=== PATIENT | female | born 1975 | race Two or more races ===

== ENCOUNTER 2017-01-01 06:51 | Emergency (ER) | payer SELFPAY ==
[2017-01-01 06:58] VITALS: BP 126/85
[2017-01-01] MEDS ORDERED: FAMOTIDINE 20 MG TABLET PO ONE (07:34)
[2017-01-01] MEDS ORDERED: DIPHENHYDRAMINE HCL 50 MG CAPSULE PO ONE (07:34)
[2017-01-01] MEDS ORDERED: PREDNISONE 20 MG TABLET PO ONE (07:34)
[2017-01-01] MEDS ORDERED: IBUPROFEN 600 MG TABLET PO ONE (07:37)
--- NOTE | 2017-01-01 07:40 | ER Document Report ---
HPI - HPI Patient complains to provider of: left hand swelling from insect bite Onset: Yesterday Onset/Duration: Gradual Quality of pain: Other - tight Pain Level: 5 Associated Symptoms: None Exacerbated by: Denies Relieved by: Denies Similar symptoms previously: No Recently seen / treated by doctor: No - ROS ROS below otherwise negative: Yes - CONSTITUTIONAL Constitutional: DENIES: Fever, Chills - EENT EENT: DENIES: Sore Throat, Ear Pain, Nasal Drainage-Clear, Nasal Drainage- Purulent, Congestion, Eye problems - NEURO Neurology: DENIES: Headache, Weakness, Vision blurred, Dizzinesss / Vertigo - CARDIOVASCULAR Cardiovascular: DENIES: Chest pain - RESPIRATORY Respiratory: DENIES: Trouble Breathing, Coughing - GASTROINTESTINAL Gastrointestinal: DENIES: Abdominal Pain, Nausea, Patient vomiting, Diarrhea, Constipation, Black / Bloody Stools - URINARY Urinary: DENIES: Dysuria, Urgency, Frequency - REPRODUCTIVE LMP: na Reproductive: DENIES: :, Postmenopausal, Abnormal bleeding / discharge - DERM Skin Color: Other - red swelling to left hand and fingers developed overnight Skin Problems: None Past Medical History - General Information source: Patient Last Menstrual Period: hyst - Social History Smoking Status: Former Smoker Cigarette use (# per day): No Chew tobacco use (# tins/day): No Smoking Education Provided: No Frequency of alcohol use: None Drug Abuse: None Lives with: Family Family History: Reviewed & Not Pertinent Patient has suicidal ideation: No Patient has homicidal ideation: No - Past Medical History Cardiac Medical History: Reports: None Pulmonary Medical History: Reports: None EENT Medical History: Reports: None Neurological Medical History: Reports: Hx Migraine Endocrine Medical History: Reports: None Renal/ Medical History: Reports: None Malignancy Medical History: Reports: None GI Medical History: Reports: Hx Gastritis Musculoskeltal Medical History: Reports None Skin Medical History: Reports None Psychiatric Medical History: Reports: Hx Bipolar Disorder Traumatic Medical History: Reports: Hx Fractures - hand and ankle Infectious Medical History: Reports: None Past Surgical History: Reports: Hx Hysterectomy, Hx Orthopedic Surgery - ORIF ankle, Hx Tonsillectomy, Hx Tubal Ligation - Immunizations Hx Diphtheria, Pertussis, Tetanus Vaccination: Yes Vertical Provider Document - CONSTITUTIONAL Agree With Documented VS: Yes Exam Limitations: No Limitations General Appearance: WD/WN, No Apparent Distress - INFECTION CONTROL TRAVEL OUTSIDE OF THE [place] IN LAST 30 DAYS: No - NECK Neck: Normal Inspection - RESPIRATORY Respiratory: Breath Sounds Normal, No Respiratory Distress, Chest Non-Tender O2 Sat by Pulse Oximetry: 98 - CARDIOVASCULAR Cardiovascular: Regular Rate, Regular Rhythm, No Murmur - GI/ABDOMEN Gastrointestinal: Abdomen Soft, Abdomen Non-Tender, No Organomegaly, Normal Bowel Sounds - BACK Back: Normal Inspection - MUSCULOSKELETAL/EXTREMETIES Musculoskeletal/Extremeties: FROM, Tender, Edema - left hand swelling - NEURO Level of Consciousness: Awake, Alert, Appropriate Motor/Sensory: No Motor Deficit, No Sensory Deficit, No Pronator Drift Deep Tendon Reflexes: 2+ - DERM Integumentary: Warm, Dry, No Rash Course - Re-evaluation Re-evalutation: 01/01/17 07:41 benadryl ibuprofen prednison and pepcid given for swollen tight hand. discharged home with prescription for prednisone. - Vital Signs Vital signs: Temp Pulse Resp BP Pulse Ox 97.7 F 78 18 126/85 H 98 01/01/17 06:55 01/01/17 06:55 01/01/17 06:55 01/01/17 06:55 01/01/17 06:55 Discharge - Discharge Clinical Impression: Insect bite of left hand with local reaction Qualifiers: Encounter type: initial encounter Qualified Code(s): S60.562A - Insect bite ( nonvenomous) of left hand, initial encounter; W57.XXXA - Bitten or stung by nonvenomous insect and other nonvenomous arthropods, initial encounter Condition: Stable Disposition: HOME, SELF-CARE Instructions: Family Physicians / Practices Additional Instructions: Insect Bites You have been bitten by an insect. These bites can cause two types of swelling: an initial swelling due to insect saliva or injected poison, and a late reaction due to your body's allergic reaction. This initial local reaction may be uncomfortable but is not dangerous. Often there's an itchy "hive" at the bite location. This is treated with antihistamines, cold compresses, and resting the affected body part. The later reaction often develops about the second day. The entire area becomes very swollen, red, itchy, and tender. This is an allergic reaction. Your body is attacking the leftover insect saliva or venom. This type of allergy is unpleasant, but not dangerous. We treat this swelling with cortisone -type medicine. Sometimes we use antibiotics if we're worried about infection. Antihistamines help with the itch. If you develop a fever, chills, a red streak, or swollen glands in the area of the bite, infection may be starting. Return at once. STEROID MEDICATION: You have been given a medicine of the cortisone/steroid class. This medication is used to control inflammation or allergy. It is usually only given for a short period of time, until the acute process subsides. There are usually no side effects from short-term use of cortisone-like medications. Some persons feel an increased sense of well-being and are not sleepy at bedtime. Long-term use of cortisone medications is best avoided, unless required for a severe condition. If your condition does not remit, or relapses after the course of corticosteroid medication, you should consult your physician. ACID-SUPPRESSING MEDICATION: You have a prescription for medicine which reduces the stomach's secretion of acid. Examples include Zantac, Tagament, and Pepcid. These drugs are often used to allow healing of ulcers or esophagitis. They may be needed to prevent recurrence of ulcers in some patients, or to prevent damage from acid reflux in the esophagus. Take all medication as prescribed, even after the pain is gone. Regular antacids may be added as needed if you have symptoms while taking this medicine. These medications sometimes are prescribed for allergic reactions because they have anti-histaminic effects and relieve the rash and itching of the reaction. There are usually no side effects from this medication. But, in rare cases and particularly in the elderly, serious problems can occur. Contact your doctor if there is fever, rash, hallucinations, confusion, or unusual bruising. Contact your doctor at once if you develop lightheadedness, black or bloody stool, or bloody vomitus. ANTIHISTAMINES: An antihistamine has been given and/or prescribed to control your symptoms. Antihistamines are used for many reasons, including itching, watering eyes, runny nose, allergic swelling, hives, and insect stings. Antihistamines may cause drowsiness, especially with the first dose. Do not operate machinery or drive while under the effects of the medication. Other common side effects include dry mouth and eyes. In older persons, antihistamines can occasionally cause urinary retention, constipation, and trouble focusing the eyes. Do not combine the medication with alcohol, or with any other medication without talking to your doctor. USE OF DIPHENHYDRAMINE: The use of diphenhydramine (Benadryl) has been recommended to control allergic symptoms. The 25 mg strength is available over- the-counter, as well as the elixir. This antihistamine is used for many symptoms. It's useful for itching, watering eyes and nose, allergic swelling, hives, and insect stings. The medication can be repeated four times daily. Age Elixir (12.5 mg/tsp) 25 mg pill 2-3 yr 1/2 tsp 4-8 yr 1 tsp 9-14 yr 2 tsp one tab adult 1-2 tabs Antihistamines may cause drowsiness, especially with the first dose. Do not operate machinery or drive while under the effects of the medication. Do not combine the medication with alcohol, or with any other medication without talking to your doctor. Ice & Elevation Apply ice packs frequently against the painful area. Many different schedules are recommended, such as "20 minutes on, 20 minutes off" or "one hour ice, two hours rest." If you need to work, you may need to go longer between ice treatments. You should plan to have the area ice packed AT LEAST one- fourth of the time. The ice should be applied over the wrap, tape, or splint, or over a layer of cloth -- not directly against the skin. Some ice bags have a built-in cloth and can be put directly on the skin. Your injured part should be elevated as much as possible over the next 48 hours. Try to keep the injury above the level of the heart. Avoid use of the injured area. Elevation and rest will decrease the swelling. FOLLOW-UP CARE: If you have been referred to a physician for follow-up care, call the physician s office for an appointment as you were instructed or within the next two days. If you experience worsening or a significant change in your symptoms, notify the physician immediately or return to the Emergency Department at any time for re-evaluation. Prescriptions: Prednisone [Deltasone 20 mg Tablet] 3 tab PO DAILY 3 Days Forms: Return to Work, Elevated Blood Pressure
== END 2017-01-01 07:51 | disposition home or self-care (01) ==
LOC: ER 06:51
DX: S60.562A Insect bite (nonvenomous) of left hand, initial encounter (principal); W57.XXXA Bitten or stung by nonvenomous insect and other nonvenomous arthropods, initial encounter; Z87.891 Personal history of nicotine dependence
CPT/HCPCS: 99283; J7512

== ENCOUNTER 2017-03-20 17:19 | Emergency (ER) | payer SELFPAY ==
--- NOTE | 2017-03-20 18:42 | ER Document Report ---
HPI - HPI Patient complains to provider of: left ankle pain Pain Level: 5 Context: 42 yo female c/0 left ankle pain x 2 weeks. no recent trauma. no redness or swelling or warmth. pt has hx/o ortho surgery to that ankle with hardware. Associated Symptoms: None Exacerbated by: Walking Relieved by: Denies Similar symptoms previously: Yes Recently seen / treated by doctor: No - REPRODUCTIVE Reproductive: DENIES: : - DERM Skin Color: Normal Past Medical History - General Information source: Patient - Social History Smoking Status: Current Every Day Smoker Frequency of alcohol use: None Drug Abuse: None Lives with: Family Family History: Reviewed & Not Pertinent Patient has suicidal ideation: No Patient has homicidal ideation: No Neurological Medical History: Reports: Hx Migraine Renal/ Medical History: Denies: Hx Peritoneal Dialysis GI Medical History: Reports: Hx Gastritis Psychiatric Medical History: Reports: Hx Bipolar Disorder Traumatic Medical History: Reports: Hx Fractures - hand and ankle Past Surgical History: Reports: Hx Hysterectomy, Hx Orthopedic Surgery - ORIF ankle, Hx Tonsillectomy, Hx Tubal Ligation - Immunizations Hx Diphtheria, Pertussis, Tetanus Vaccination: Yes Vertical Provider Document - CONSTITUTIONAL Agree With Documented VS: Yes Exam Limitations: No Limitations General Appearance: WD/WN, No Apparent Distress - INFECTION CONTROL TRAVEL OUTSIDE OF THE [place] IN LAST 30 DAYS: No - HEENT HEENT: Atraumatic - NECK Neck: Normal Inspection, Supple - RESPIRATORY Respiratory: Breath Sounds Normal O2 Sat by Pulse Oximetry: 100 - CARDIOVASCULAR Cardiovascular: Regular Rate, Regular Rhythm - MUSCULOSKELETAL/EXTREMETIES Musculoskeletal/Extremeties: FROM - distal SMC intact, Tender - left lateral malleous.. negative: No Edema, Eccymosis - DERM Integumentary: Warm, Dry Course - Re-evaluation Re-evalutation: 03/20/17 18:38 no recent trauma. no indication for imaging. no suspicion circulatory or infectious origin. suspect traumatic arthritis. 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
[2017-03-20 19:22] VITALS: BP 117/72
== END 2017-03-20 19:01 | disposition home or self-care (01) ==
LOC: ER 17:19
DX: M25.572 Pain in left ankle and joints of left foot (principal); M12.572 Traumatic arthropathy, left ankle and foot; F17.200 Nicotine dependence, unspecified, uncomplicated; Z90.710 Acquired absence of both cervix and uterus
CPT/HCPCS: 99283

== ENCOUNTER 2017-05-10 11:40 | Emergency (ER) | payer SELFPAY ==
--- NOTE | 2017-05-10 12:15 | ER Document Report ---
ED Medical Screen (RME) - General Mode of Arrival: Ambulatory Information source: Patient TRAVEL OUTSIDE OF THE [place] IN LAST 30 DAYS: No <PHYLLIS NIETO - Last Filed: 05/10/17 12:43> <TE REBOLLEDO - Last Filed: 05/10/17 12:44> - General Chief Complaint: Abdominal Pain Stated Complaint: ABDOMINAL PAIN Time Seen by Provider: 05/10/17 12:01 Notes: Patient is a 42 year old female presenting to the emergency department for sharp abdominal pain that was onset around 9:30 this morning. Patient describes the pain as sharp and stabbing. Patient also experienced some bleeding when she went to the bathroom x2. Patient noticed the blood on the paper and not in the toilet or on her undergarments. Patient is unsure if the blood is vaginal or urinary. Patient states the first time the blood was bright red and then it was ground worker the second time. Patient denies any burning with urination. Patient denies being due to a hysterectomy. Patient denies any history of kidney stones. (PHYLLIS NIETO) - Related Data Allergies/Adverse Reactions: aspirin [Aspirin] Allergy (Verified 05/10/17 11:57) Home Medications: Current Home Medications No Home Medications 05/10/17 [History] Past Medical History - Social History Cigarette use (# per day): No Chew tobacco use (# tins/day): No Frequency of alcohol use: Occasional Drug Abuse: None Neurological Medical History: Reports: Hx Migraine Renal/ Medical History: Denies: Hx Peritoneal Dialysis GI Medical History: Reports: Hx Gastritis Psychiatric Medical History: Reports: Hx Bipolar Disorder Traumatic Medical History: Reports: Hx Fractures - hand and ankle Past Surgical History: Reports: Hx Hysterectomy, Hx Orthopedic Surgery - ORIF ankle, Hx Tonsillectomy, Hx Tubal Ligation - Immunizations Hx Diphtheria, Pertussis, Tetanus Vaccination: Yes <PHYLLIS NIETO - Last Filed: 05/10/17 12:43> Physical Exam - Vital signs Interpretation: Normal <PHYLLIS NIETO - Last Filed: 05/10/17 12:43> <TE REBOLLEDO - Last Filed: 05/10/17 12:44> - Vital signs Vitals: Temp Pulse Resp BP Pulse Ox 98.0 F 64 16 135/78 H 99 05/10/17 11:57 05/10/17 11:57 05/10/17 11:57 05/10/17 11:57 05/10/17 11:57 - Notes Notes: GENERAL: Alert, interacts well. No acute distress. LUNGS: No respiratory distress. ABDOMEN: Soft, suprapubic tenderness to palpation in a seated position. Non- distended. Bowel sounds present in all 4 quadrants. NEUROLOGICAL: Alert and oriented x3. Normal speech. (PHYLLIS NIETO) Course - Laboratory Result Diagrams: 05/10/17 12:19 05/10/17 12:19 <PHYLLIS NIETO - Last Filed: 05/10/17 12:43> - Laboratory Result Diagrams: 05/10/17 12:19 05/10/17 12:19 <TE REBOLLEDO - Last Filed: 05/10/17 12:44> - Vital Signs Vital signs: Temp Pulse Resp BP Pulse Ox 98.0 F 64 16 135/78 H 99 05/10/17 11:57 05/10/17 11:57 05/10/17 11:57 05/10/17 11:57 05/10/17 11:57 Scribe Documentation - Scribe Written by Scribe:: Annamarie Hensley 05/10/17 12:16 acting as scribe for :: Radha <PHYLLIS NIETO - Last Filed: 05/10/17 12:43>
--- NOTE | 2017-05-10 12:33 | ER Document Report ---
ED GI/ - General Chief Complaint: Abdominal Pain Stated Complaint: ABDOMINAL PAIN Time Seen by Provider: 05/10/17 12:01 Mode of Arrival: Ambulatory Information source: Patient Notes: 42-year-old female complaining of finding some blood when she wiped after urinating at work at 930 this morning. She is also having suprapubic discomfort. No history kidney stones. She did not have a bowel movement at that time there is no bleeding at this time. Hysterectomy 5 years ago. No vaginal symptoms with discharge or discomfort. TRAVEL OUTSIDE OF THE [place] IN LAST 30 DAYS: No - Related Data Allergies/Adverse Reactions: aspirin [Aspirin] Allergy (Verified 05/10/17 11:57) Home Medications: Current Home Medications No Home Medications 05/10/17 [History] Past Medical History - General Information source: Patient - Social History Smoking Status: Never Smoker Cigarette use (# per day): No Chew tobacco use (# tins/day): No Frequency of alcohol use: Occasional Drug Abuse: None Family History: Reviewed & Not Pertinent Patient has suicidal ideation: No Patient has homicidal ideation: No Neurological Medical History: Reports: Hx Migraine Renal/ Medical History: Denies: Hx Peritoneal Dialysis GI Medical History: Reports: Hx Gastritis Psychiatric Medical History: Reports: Hx Bipolar Disorder Traumatic Medical History: Reports: Hx Fractures - hand and ankle Past Surgical History: Reports: Hx Hysterectomy, Hx Oral Surgery - wisdom teeth , Hx Orthopedic Surgery - ORIF ankle, Hx Tonsillectomy, Hx Tubal Ligation - Immunizations Hx Diphtheria, Pertussis, Tetanus Vaccination: Yes Review of Systems - Review of Systems Constitutional: No symptoms reported EENT: No symptoms reported Cardiovascular: No symptoms reported Respiratory: No symptoms reported Gastrointestinal: No symptoms reported Genitourinary: See HPI Female Genitourinary: No symptoms reported Musculoskeletal: No symptoms reported Skin: No symptoms reported Hematologic/Lymphatic: No symptoms reported Neurological/Psychological: No symptoms reported Physical Exam - Vital signs Vitals: Temp Pulse Resp BP Pulse Ox 98.0 F 64 16 135/78 H 99 05/10/17 11:57 05/10/17 11:57 05/10/17 11:57 05/10/17 11:57 05/10/17 11:57 Interpretation: Normal - General General appearance: Appears well, Alert - HEENT Head: Normocephalic, Atraumatic Eyes: Normal Pupils: PERRL Pharynx: Normal Neck: Supple. No: Thyromegally - Respiratory Respiratory status: No respiratory distress Chest status: Nontender Breath sounds: Normal Chest palpation: Normal - Cardiovascular Rhythm: Regular Heart sounds: Normal auscultation Murmur: No - Abdominal Inspection: Normal Distension: No distension Bowel sounds: Normal Tenderness: Nontender. No: Tender Organomegaly: No organomegaly - Rectal Tenderness: Yes - anal fissure a 12 oclock Hemorrhoids: None - Genitourinary External exam: Normal - Back Back: Normal, Nontender. No: CVA tenderness - Extremities General upper extremity: Normal inspection, Nontender, Normal color, Normal ROM , Normal temperature General lower extremity: Normal inspection, Nontender, Normal color, Normal ROM , Normal temperature, Normal weight bearing. No: Kyung's sign - Neurological Neuro grossly intact: Yes Cognition: Normal Orientation: AAOx4 Addison Coma Scale Eye Opening: Spontaneous Addison Coma Scale Verbal: Oriented Addison Coma Scale Motor: Obeys Commands Addison Coma Scale Total: 15 Speech: Normal Motor strength normal: LUE, RUE, LLE, RLE Sensory: Normal - Psychological Associated symptoms: Normal affect, Normal mood - Skin Skin Temperature: Warm Skin Moisture: Dry Skin Color: Normal Skin irregularity: negative: Rash Course - Re-evaluation Re-evalutation: 05/10/17 12:55 Patient checked her vagina with a Q-tip and there is no blood on it. Urine has no blood. Labs are normal. - Vital Signs Vital signs: Temp Pulse Resp BP Pulse Ox 98.3 F 74 16 117/75 100 05/10/17 13:57 05/10/17 13:57 05/10/17 13:57 05/10/17 13:57 05/10/17 13:57 - Laboratory Result Diagrams: 05/10/17 12:19 05/10/17 12:19 Laboratory results interpreted by me: 05/10/17 12:19 Urine Blood SMALL H Discharge - Discharge Clinical Impression: Anal fissure, Suprapubic abdominal discomfort Condition: Good Disposition: HOME, SELF-CARE Instructions: Abdominal Pain ([facility]), Anal Fissure ([facility]), Stool Softener ([facility]) Additional Instructions: do not strain, bacitracin to anal fissure if you have a bm past this skin tear it may bleed again keep stools soft for now with over the counter stool softner, plenty of water daily Please complete the patient satisfaction survey if you get one, and return it.. If you do not receive a survey, then you can go to the [facility] website, [email or web address] and place your comments about your very good care. Thank you very much. It was a pleasure being your medical provider today. Forms: Return to Work
[2017-05-10 12:41] LABS: ABSOLUTE EOSINOPHILS # (AUTO) 0.2 10^3/uL (0.0-0.6); ABSOLUTE LYMPHOCYTES (AUTO) 1.7 10^3/uL (0.5-4.7); ABSOLUTE MONOCYTES (AUTO) 0.4 10^3/uL (0.1-1.4); ABSOLUTE NEUT (AUTO) 4.6 10^3/uL (1.7-8.2); BASOPHILS % (AUTO) 0.5 % (0-2); EOSINOPHILS % (AUTO) 2.3 % (0-6); HEMATOCRIT 40.1 % (36.0-47.0); HEMOGLOBIN 13.5 g/dL (12.0-15.5); HGB HCT DIFFERENCE 0.4; LYMPHOCYTES % (AUTO) 24.3 % (13-45); MEAN CORPUSCULAR HEMOGLOBIN 29.7 pg (27.0-33.4); MEAN CORPUSCULAR HGB CONC 33.7 g/dL (32.0-36.0); MEAN CORPUSCULAR VOLUME 88 fl (80-97); MONOCYTES % (AUTO) 6.5 % (3-13); RED BLOOD COUNT 4.55 10^6/uL (3.72-5.28); RED CELL DISTRIBUTION WIDTH 12.9 % (11.5-14.0); SEGMENTED NEUTROPHILS % (AUTO) 66.4 % (42-78); WHITE BLOOD COUNT 6.9 10^3/uL (4.0-10.5)
[2017-05-10 12:45] LABS: APPEARANCE,URINE CLEAR; BILIRUBIN,URINE NEGATIVE (NEGATIVE); GLUCOSE, URINE NEGATIVE (NEGATIVE); KETONES,URINE NEGATIVE (NEGATIVE); LEUKOCYTE ESTERASE,URINE NEGATIVE (NEGATIVE); NITRITE,URINE NEGATIVE (NEGATIVE); PROTEIN,URINE NEGATIVE (NEGATIVE); URINE SPECIFIC GRAVITY 1.004; UROBILINOGEN,URINE NEGATIVE mg/dL (<2.0)
[2017-05-10 13:03] LABS: ALANINE AMINOTRANSFERASE 42 U/L (9-52); ALBUMIN 4.3 g/dL (3.5-5.0); ALKALINE PHOSPHATASE 49 U/L (38-126); ANION GAP 9 (5-19); ASPARTATE AMINO TRANSFERASE 32 U/L (14-36); BILIRUBIN,DIRECT 0.4 mg/dL (0.0-0.4); BILIRUBIN,TOTAL 0.7 mg/dL (0.2-1.3); BLOOD UREA NITROGEN 7 mg/dL (7-20); CALCIUM 10.1 mg/dL (8.4-10.2); CARBON DIOXIDE 27 mmol/L (22-30); CHLORIDE 103 mmol/L (98-107); CREATININE RESULT 0.76 mg/dL (0.52-1.25); GLUCOSE 82 mg/dL (75-110); SODIUM 138.5 mmol/L (137-145); TOTAL PROTEIN 7.1 g/dL (6.3-8.2)
[2017-05-10 13:57] VITALS: BP 117/75
== END 2017-05-10 13:58 | disposition home or self-care (01) ==
LOC: ER 11:40
DX: R10.30 Lower abdominal pain, unspecified (principal); K60.2 Anal fissure, unspecified; Z90.710 Acquired absence of both cervix and uterus; Z88.6 Allergy status to analgesic agent
CPT/HCPCS: 36415; 80053; 81001; 85025; 87086; 99284

== ENCOUNTER 2017-12-14 08:15 | Emergency (ER) | payer BC ==
[2017-12-14] MEDS ORDERED: NORMAL SALINE 1000 ML 1,000 ML IV PRN (09:04)
[2017-12-14] MEDS ORDERED: PROCHLORPERAZINE EDISYLATE INJ 10 MG/2 ML VIAL IV ONE (09:05)
[2017-12-14] MEDS ORDERED: ONDANSETRON HCL INJ/PF 4 MG/2 ML SDV IV ONE (09:05)
[2017-12-14 09:13] LABS: ABSOLUTE EOSINOPHILS # (AUTO) 0.1 10^3/uL (0.0-0.6); ABSOLUTE LYMPHOCYTES (AUTO) 0.6 10^3/uL (0.5-4.7); ABSOLUTE MONOCYTES (AUTO) 0.4 10^3/uL (0.1-1.4); ABSOLUTE NEUT (AUTO) 2.7 10^3/uL (1.7-8.2); BASOPHILS % (AUTO) 0.9 % (0-2); EOSINOPHILS % (AUTO) 2.8 % (0-6); HEMATOCRIT 40.6 % (36.0-47.0); HEMOGLOBIN 13.6 g/dL (12.0-15.5); LYMPHOCYTES % (AUTO) 15.9 % (13-45); MEAN CORPUSCULAR HEMOGLOBIN 29.5 pg (27.0-33.4); MEAN CORPUSCULAR HGB CONC 33.6 g/dL (32.0-36.0); MEAN CORPUSCULAR VOLUME 88 fl (80-97); MONOCYTES % (AUTO) 11.4 % (3-13); PLATELET COUNT 256 10^3/uL (150-450); RED BLOOD COUNT 4.62 10^6/uL (3.72-5.28); RED CELL DISTRIBUTION WIDTH 12.9 % (11.5-14.0); TOTAL CELLS COUNTED % (AUTO) 100 %; WHITE BLOOD COUNT 3.9 10^3/uL (4.0-10.5)
[2017-12-14 09:34] LABS: ALANINE AMINOTRANSFERASE 29 U/L (9-52); ALBUMIN 4.4 g/dL (3.5-5.0); ALKALINE PHOSPHATASE 36 U/L (38-126); ANION GAP 8 (5-19); ASPARTATE AMINO TRANSFERASE 20 U/L (14-36); BILIRUBIN,DIRECT 0.2 mg/dL (0.0-0.4); BILIRUBIN,TOTAL 0.5 mg/dL (0.2-1.3); BLOOD UREA NITROGEN 9 mg/dL (7-20); CALCIUM 9.5 mg/dL (8.4-10.2); CARBON DIOXIDE 25 mmol/L (22-30); CHLORIDE 104 mmol/L (98-107); CREATINE KINASE 39 U/L (30-135); GLUCOSE 101 mg/dL (75-110); SODIUM 137.3 mmol/L (137-145); TOTAL PROTEIN 7.2 g/dL (6.3-8.2)
[2017-12-14 09:38] LABS: INTERNATIONAL RATION (INR) 0.96; PROTHROMBIN TIME 13.5 SEC (11.4-15.4)
[2017-12-14 09:45] LABS: CREATINE KINASE MB < 0.22 ng/mL (<4.55); TROPONIN I < 0.012 ng/mL
[2017-12-14 09:53] LABS: APPEARANCE,URINE CLEAR; BILIRUBIN,URINE NEGATIVE (NEGATIVE); COLOR,URINE YELLOW; GLUCOSE, URINE NEGATIVE (NEGATIVE); KETONES,URINE NEGATIVE (NEGATIVE); LEUKOCYTE ESTERASE,URINE NEGATIVE (NEGATIVE); NITRITE,URINE NEGATIVE (NEGATIVE); PROTEIN,URINE NEGATIVE (NEGATIVE); URINE SPECIFIC GRAVITY 1.023; UROBILINOGEN,URINE NEGATIVE mg/dL (<2.0)
--- NOTE | 2017-12-14 09:59 | RADIOLOGY REPORT (SQ) ---
EXAM DESCRIPTION: CHEST PA/LAT COMPLETED DATE/TIME: 12/14/2017 9:41 am REASON FOR STUDY: sob/cp COMPARISON: 03/21/2016 EXAM PARAMETERS: NUMBER OF VIEWS: two views TECHNIQUE: Digital Frontal and Lateral radiographic views of the chest acquired. RADIATION DOSE: NA LIMITATIONS: none FINDINGS: LUNGS AND PLEURA: No opacities, masses or pneumothorax. No pleural effusion. MEDIASTINUM AND HILAR STRUCTURES: No masses or contour abnormalities. HEART AND VASCULAR STRUCTURES: Heart normal size. No evidence for failure. BONES: No acute findings. HARDWARE: None in the chest. OTHER: No other significant finding. IMPRESSION: NO SIGNIFICANT RADIOGRAPHIC FINDING IN THE CHEST. TECHNICAL DOCUMENTATION: JOB ID: [id number] [employer]- All Rights Reserved Reading location - IP/workstation name: [email or web address]
--- NOTE | 2017-12-14 10:23 | EKG REPORT ---
SEVERITY:- BORDERLINE ECG - SINUS RHYTHM PROBABLE LEFT ATRIAL ABNORMALITY : Confirmed by: Gomez Vera MD 14-Dec-2017 10:22:44
--- NOTE | 2017-12-14 11:33 | ER Document Report ---
ED General - General Chief Complaint: Chest Tightness Stated Complaint: HEADACHE Time Seen by Provider: 12/14/17 08:50 TRAVEL OUTSIDE OF THE [place] IN LAST 30 DAYS: No - HPI Patient complains to provider of: Chest tightness nausea headache Notes: Patient coming in for chest tightness nausea headache ongoing since day prior to arrival. Patient states she otherwise just feels generally unwell. Denies fevers chills or diarrhea. Denies any recent antibiotics or travel. Denies any other sick contacts. Patient is resting comfortably upon my evaluation denies any head trauma states chest tightness is global as well as her headache. - Related Data Allergies/Adverse Reactions: aspirin [Aspirin] Allergy (Verified 12/14/17 08:18) Past Medical History - Social History Smoking Status: Current Some Day Smoker Chew tobacco use (# tins/day): No Frequency of alcohol use: None Family History: Reviewed & Not Pertinent Patient has suicidal ideation: No Patient has homicidal ideation: No Neurological Medical History: Reports: Hx Migraine Renal/ Medical History: Denies: Hx Peritoneal Dialysis GI Medical History: Reports: Hx Gastritis Psychiatric Medical History: Reports: Hx Bipolar Disorder Traumatic Medical History: Reports: Hx Fractures - hand and ankle Past Surgical History: Reports: Hx Hysterectomy, Hx Oral Surgery - wisdom teeth , Hx Orthopedic Surgery - ORIF ankle, Hx Tonsillectomy, Hx Tubal Ligation - Immunizations Hx Diphtheria, Pertussis, Tetanus Vaccination: Yes Review of Systems - Review of Systems Constitutional: No symptoms reported EENT: No symptoms reported Cardiovascular: Chest pain Respiratory: No symptoms reported Gastrointestinal: No symptoms reported Genitourinary: No symptoms reported Female Genitourinary: No symptoms reported Musculoskeletal: No symptoms reported Skin: No symptoms reported Hematologic/Lymphatic: No symptoms reported Neurological/Psychological: Headaches -: Yes All other systems reviewed and negative Physical Exam - Vital signs Vitals: Resp Pulse Ox 17 98 12/14/17 08:45 12/14/17 08:45 Interpretation: Normal - General General appearance: Appears well, Alert - HEENT Head: Normocephalic, Atraumatic Eyes: Normal Pupils: PERRL - Respiratory Respiratory status: No respiratory distress Chest status: Nontender Breath sounds: Normal Chest palpation: Normal - Cardiovascular Rhythm: Regular Heart sounds: Normal auscultation Murmur: No - Abdominal Inspection: Normal Distension: No distension Bowel sounds: Normal Tenderness: Nontender Organomegaly: No organomegaly - Back Back: Normal, Nontender - Extremities General upper extremity: Normal inspection, Nontender, Normal color, Normal ROM , Normal temperature General lower extremity: Normal inspection, Nontender, Normal color, Normal ROM , Normal temperature, Normal weight bearing. No: Kyung's sign - Neurological Neuro grossly intact: Yes Cognition: Normal Orientation: AAOx4 Addison Coma Scale Eye Opening: Spontaneous Addison Coma Scale Verbal: Oriented [place] Coma Scale Motor: Obeys Commands Regina Coma Scale Total: 15 Speech: Normal Motor strength normal: LUE, RUE, LLE, RLE Sensory: Normal - Psychological Associated symptoms: Normal affect, Normal mood - Skin Skin Temperature: Warm Skin Moisture: Dry Skin Color: Normal Course - Re-evaluation Re-evalutation: 12/14/17 14:40 Patient resting comfortably upon my evaluation reevaluation. Patient pain is now better. More likely viral etiology for the patient's symptoms. Denies any significant pathology patient will be discharged home follow-up primary care physician. The patient presents with headache without signs of [employer] bleed, stroke, infection, or other serious etiology. The patient is neurologically intact. Given the extremely low risk of these diagnoses further testing and evaluation for these possibilities does not appear to be indicated at this time. The patient has been instructed to return if the symptoms worsen or change in any way.. The patient has atypical chest pain as the patient's chest pain is not suggestive of pulmonary embolus, cardiac ischemia, aortic dissection , or other serious etiology. Given the extremely low risk of these diagnoses further testing and evaluation for these possibilities does not appear to be indicated at this time. The patient has been instructed to return if the symptoms worsen or change in any way. - Vital Signs Vital signs: Temp Pulse Resp BP Pulse Ox 98.6 F 21 H 129/91 H 100 12/14/17 11:50 12/14/17 11:46 12/14/17 11:50 12/14/17 11:00 - Laboratory Result Diagrams: 12/14/17 09:00 12/14/17 09:00 Laboratory results interpreted by me: 12/14/17 12/14/17 09:00 09:00 WBC 3.9 L Alkaline Phosphatase 36 L Discharge - Discharge Clinical Impression: Chest tightness, Nausea Headache Qualifiers: Headache type: unspecified Headache chronicity pattern: unspecified pattern Intractability: not intractable Qualified Code(s): R51 - Headache Condition: Good Disposition: HOME, SELF-CARE Instructions: Chest Pain of Unclear Cause ([facility]), Headache ([facility]), Nausea or Vomiting, Nonspecific ([facility]), Viral Syndrome ([facility]) Additional Instructions: Your symptoms are more likely related to a underlying virus. At this time her laboratory studies do not show any significant pathology. Please take medication as prescribed also take Tylenol Motrin for pain and fevers. Return to the ER symptoms worsen. Prescriptions: Ondansetron [Zofran Odt 4 mg Tablet] 4 mg PO Q6 #30 tab.rapdis Prochlorperazine Maleate [Compazine 5 Mg Tablet] 5 mg PO Q6 #30 tablet Forms: Return to Work
[2017-12-14 11:53] VITALS: BP 129/91
== END 2017-12-14 11:53 | disposition home or self-care (01) ==
LOC: ER 08:15
DX: R07.89 Other chest pain (principal); R51 Headache; R11.0 Nausea; F17.200 Nicotine dependence, unspecified, uncomplicated
CPT/HCPCS: 93005; 99284; 96361; 96374; 96375; 36415; 82553; 82550; 85025; 85610; 81025; 80053; 81001; 84484; 71046; 93010; J0780; J2405; J7030

== ENCOUNTER 2018-02-18 12:42 | Emergency (ER) | payer BC ==
[2018-02-18 12:56] VITALS: BP 121/74
[2018-02-18] MEDS ORDERED: PREDNISONE 20 MG TABLET PO ONE (13:20)
[2018-02-18] MEDS ORDERED: IBUPROFEN 800 MG TABLET PO ONE (13:20)
--- NOTE | 2018-02-18 13:20 | ER Document Report ---
ED Neck/Back Problem - General Chief Complaint: Leg Pain Stated Complaint: RIGHT SIDE PAIN/LEG PAIN Time Seen by Provider: 02/18/18 13:19 Mode of Arrival: Ambulatory Information source: Patient Notes: 41-year-old female presented ED for complaint of back pain radiating down her right leg. She states that at times it feels like her right knee and leg are going to give out on her due to the pain. She states she has had a history of low back pain with sciatica to the left leg but never to the right ear patient is able to ambulate with a steady gait when asked to ambulate she was also able to walk to radiology TRAVEL OUTSIDE OF THE [place] IN LAST 30 DAYS: No - HPI Patient complains to provider of: Lower back - With sciatica to the right leg Onset: Other - Since Saturday Onset: Gradual Timing: Waxing and waning, Still present Quality of pain: Burning, Sharp Severity: Moderate Pain Level: 3 Recent injury: No Associated symptoms: Like prior neck/back pain, Radiation to leg - Right, Lower back pain. denies: Motor loss, Numbness/tingling, Sensory loss, Sweaty, Unable to urinate Exacerbated by: Movement of trunk Relieved by: Nothing Similar symptoms previously: Yes Recently seen / treated by doctor: No - Related Data Allergies/Adverse Reactions: aspirin [Aspirin] Allergy (Verified 12/14/17 08:18) Past Medical History - General Information source: Patient - Social History Smoking Status: Current Every Day Smoker Cigarette use (# per day): Yes - 1 cigarette a day Chew tobacco use (# tins/day): No Smoking Education Provided: Yes - Minutes Frequency of alcohol use: Occasional Drug Abuse: None Occupation: [employer] Lives with: Spouse/Significant other Family History: Reviewed & Not Pertinent Patient has suicidal ideation: No Patient has homicidal ideation: No - Past Medical History Cardiac Medical History: Reports: None Pulmonary Medical History: Reports: None EENT Medical History: Reports: None Neurological Medical History: Reports: Hx Migraine Endocrine Medical History: Reports: None Renal/ Medical History: Reports: None Malignancy Medical History: Reports: None GI Medical History: Reports: Hx Gastritis Musculoskeltal Medical History: Reports Hx Musculoskeletal Deformity, Reports Hx Musculoskeletal Trauma Skin Medical History: Reports None Psychiatric Medical History: Reports: Hx Bipolar Disorder Traumatic Medical History: Reports: Hx Fractures - hand and ankle Infectious Medical History: Reports: None Past Surgical History: Reports: Hx Hysterectomy, Hx Oral Surgery - wisdom teeth , Hx Orthopedic Surgery - ORIF ankle, Hx Tonsillectomy, Hx Tubal Ligation - Immunizations Hx Diphtheria, Pertussis, Tetanus Vaccination: Yes Review of Systems - Review of Systems Constitutional: No symptoms reported EENT: No symptoms reported Cardiovascular: No symptoms reported Respiratory: No symptoms reported Gastrointestinal: No symptoms reported Genitourinary: No symptoms reported Female Genitourinary: No symptoms reported Musculoskeletal: Back pain - Radiating to the right leg causing her to feel like her legs going to give out from under her Skin: No symptoms reported Hematologic/Lymphatic: No symptoms reported Neurological/Psychological: No symptoms reported -: Yes All other systems reviewed and negative Physical Exam - Vital signs Vitals: Temp Pulse Resp BP Pulse Ox 98.4 F 86 16 121/74 97 02/18/18 12:54 02/18/18 12:54 02/18/18 12:54 02/18/18 12:54 02/18/18 12:54 Interpretation: Normal - General General appearance: Appears well, Alert - HEENT Head: Normocephalic, Atraumatic Eyes: Normal Pupils: PERRL - Respiratory Respiratory status: No respiratory distress Chest status: Nontender Breath sounds: Normal Chest palpation: Normal - Cardiovascular Rhythm: Regular Heart sounds: Normal auscultation Murmur: No - Abdominal Inspection: Normal Distension: No distension Bowel sounds: Normal Tenderness: Nontender Organomegaly: No organomegaly - Back Back: Normal, Tender. No: Deformity/step-off, CVA tenderness, Vertebra tenderness, Scars, Scoliosis, Wounds - Extremities General upper extremity: Normal inspection, Nontender, Normal color, Normal ROM , Normal temperature General lower extremity: Normal inspection, Nontender, Normal color, Normal ROM , Normal temperature, Normal weight bearing. No: Kyung's sign - Neurological Neuro grossly intact: Yes Cognition: Normal Orientation: AAOx4 [place] Coma Scale Eye Opening: Spontaneous Addison Coma Scale Verbal: Oriented Addison Coma Scale Motor: Obeys Commands [place] Coma Scale Total: 15 Speech: Normal Motor strength normal: LUE, RUE, LLE, RLE Sensory: Normal - Psychological Associated symptoms: Normal affect, Normal mood - Skin Skin Temperature: Warm Skin Moisture: Dry Skin Color: Normal Course - Re-evaluation Re-evalutation: 06/05/18 21:17 There was no vertebral tenderness to the lower back. She had pain to SI joint and bilateral muscles. She was instructed on use of ice warm packs ibuprofen and back exercises. Patient was discharged home to follow-up with her primary doctor. After performing a Medical Screening Examination, I estimate there is LOW risk for EXPANDING OR RUPTURED ABDOMINAL AORTIC ANEURYSM, CAUDA EQUINA SYNDROME, EPIDURAL MASS LESION, or HERNIATED DISK CAUSING SEVERE SPINAL STENOSIS , thus I consider the discharge disposition reasonable. I have reevaluated this patient multiple times and no significant life threatening changes are noted. The patient and I have discussed the diagnosis and risks, and we agree with discharging home and close follow-up. We also discussed returning to the Emergency Department immediately if new or worsening symptoms occur with the understanding that symptoms and presentations can change. We have discussed the symptoms which are most concerning (e.g., saddle anesthesia, urinary or bowel incontinence or retention, changing or worsening pain) that necessitate immediate return. - Vital Signs Vital signs: Temp Pulse Resp BP Pulse Ox 98.4 F 86 16 121/74 97 02/18/18 12:54 02/18/18 12:54 02/18/18 12:54 02/18/18 12:54 02/18/18 12:54 Discharge - Discharge Clinical Impression: Back pain Qualifiers: Back pain location: low back pain Chronicity: unspecified Back pain laterality : bilateral Sciatica presence: with sciatica Sciatica laterality: bilateral sciatica Qualified Code(s): M54.42 - Lumbago with sciatica, left side Condition: Stable Disposition: HOME, SELF-CARE Instructions: Family Physicians / Practices Additional Instructions: LOW BACK PAIN: Three out of every four people will have an episode of disabling back pain during their lifetime. Most commonly the pain is due to straining of the muscles and ligaments in the low back. Usual treatment includes: (1) Rest on a firm surface. Avoid lying on your stomach. (2) Ice pack the painful area. After a few days, gentle heat may be used intermittently to relax the area, or ice packs can be continued. (3) Medication may be needed -- muscle relaxers and antiinflammatory medicines are commonly used. (4) As the back improves, exercises are prescribed to strengthen the back and abdominal muscles. Your doctor will advise you on the proper care for your back at each stage in your recovery. You may be better in a few days -- or healing may take several weeks. If new symptoms of a "herniated disc" (radiation of pain, numbness, or tingling down the back of the leg or weakness in the leg) occur, you should be re-examined. Further testing may be necessary. Sciatica Your symptoms suggest "sciatica." The pain of sciatica typically radiates down the leg. Numbness in the foot or calf may also occur. Sciatica is caused by irritation of the sciatic nerve or its branches. The irritation can be due to a herniated disk in the spine, swelling and inflammation in the muscles surrounding the sciatic nerve, or direct injury of the nerve itself. Most cases of sciatica will resolve with medical treatment. Bed rest is usually recommended initially. Surgery is only necessary when the condition will not improve with rest and antiinflammatory medication. Muscle relaxers are often given if muscle soreness is present. A CAT scan of the back may be performed if a herniated disk is suspected. Re-examination is necessary if you develop increasing numbness, localized weakness in the foot or ankle, or if the pain does not respond to rest. MUSCLE RELAXERS: Muscle relaxing medications are usually prescribed for acute muscle spasm or injury to the neck and back. They are often combined with antiinflammatory pain medication for increased relief. You may stop the muscle relaxer when the pain and stiffness have improved. Start the medication again if spasms recur. Muscle relaxers may cause drowsiness, especially with the first dose. Do not operate machinery or drive while under the effects of the medication. Most muscle relaxers last up to 24 hours. Do not combine the medication with alcohol. ICE PACKS: Apply ice packs frequently against the painful area. Many different schedules are recommended, such as "20 minutes on, 20 minutes off" or "one hour ice, two hours rest." If you need to work, you may need to go longer between ice treatments. You should plan to have the area ice packed AT LEAST one fourth of the time. The ice should be applied over the wrap, tape, or splint, or over a layer of cloth -- not directly against the skin. Some ice bags have a built-in cloth and can be put directly on the skin. WARM PACKS: After approximately two days, apply gentle heat (such as a heating pad or hot water bottle) for about 20 to 30 minutes about every two hours -- at least four times daily. Warmth and elevation will help you make a more rapid recovery , and will ease the pain considerably. Do not use HOT heat, and never apply heat for longer than 30 minutes. The continuous heat can invisibly damage skin and muscles -- even when no burn is seen on the surface. Damaged muscles can make you MORE sore. STEROID MEDICATION: You have been given a medicine of the cortisone/steroid class. This medication is used to control inflammation or allergy. It is usually only given for a short period of time, until the acute process subsides. There are usually no side effects from short-term use of cortisone-like medications. Some persons feel an increased sense of well-being and are not sleepy at bedtime. Long-term use of cortisone medications is best avoided, unless required for a severe condition. If your condition does not remit, or relapses after the course of corticosteroid medication, you should consult your physician. Ibuprofen Ibuprofen is an excellent, safe drug for pain control. In addition, it has potent antiinflammatory effects which are beneficial, especially in the treatment of injuries, arthritis, or tendonitis. It's best to take ibuprofen with food. Persons with ulcer disease or allergy to aspirin should notify their physician of this before taking ibuprofen. Take the medication exactly as prescribed. Don't take additional doses unless instructed to do so by your doctor. If you develop wheezing, shortness of breath, hives, faintness, stomach pain, vomiting, or dark black stools, return for re-evaluation at once. Stretching Exercises for the Back The physician has recommended that you begin stretching exercises for your back. These are often used even while the back is painful. However, you should notify the physician if the activities seem to increase your pain. PELVIC TILT: Lie flat on your back with knees bent. Tighten your stomach and buttock muscles so it flattens your lower back against the floor. Hold 10 seconds. Repeat 10 times, twice daily. KNEE RAISE: Lying on the back with knees bent, raise one knee to your chest, then the other. Hold both knees against the chest 10 seconds, then lower one knee at a time. Repeat 10 times, twice daily. PARTIAL TRUNK RAISE: Lie face down, arms at your sides. Keeping your waist on the floor, use your arms raise your chest up. Support yourself on your elbows for 30 seconds. Repeat twice daily, increasing the time to two minutes as you recover. FOLLOW-UP CARE: If you have been referred to a physician for follow-up care, call the physician s office for an appointment as you were instructed or within the next two days. If you experience worsening or a significant change in your symptoms, notify the physician immediately or return to the Emergency Department at any time for re-evaluation. Prescriptions: Ibuprofen 600 mg PO Q8HP PRN #20 tablet PRN Reason: Prednisone [Deltasone 20 mg Tablet] 3 tab PO DAILY 3 Days tablet Forms: Return to Work
== END 2018-02-18 13:38 | disposition home or self-care (01) ==
LOC: ER 12:42
DX: M54.41 Lumbago with sciatica, right side (principal); M54.42 Lumbago with sciatica, left side; F17.210 Nicotine dependence, cigarettes, uncomplicated; Z71.6 Tobacco abuse counseling; Z88.6 Allergy status to analgesic agent
CPT/HCPCS: 99283; J7512

== ENCOUNTER 2018-09-18 11:53 | Emergency (ER) | payer BC ==
[2018-09-18] MEDS ORDERED: DEXAMETHASONE 4 MG TABLET PO ONE (12:51)
[2018-09-18] MEDS ORDERED: KETOROLAC TROMETHAMINE 60 MG/2 ML SDV IM ONE (12:51)
[2018-09-18] MEDS ORDERED: LIDOCAINE 5% (700 MG) TRANSDERMAL ADH..PATCH TP ONE (12:53)
--- NOTE | 2018-09-18 12:58 | ER Document Report ---
ED Neck/Back Problem - General Chief Complaint: Back Pain Stated Complaint: BACK AND LEG PAIN Time Seen by Provider: 09/18/18 12:42 Mode of Arrival: Ambulatory Information source: Patient Notes: 43-year-old female presents to ED for complaint of low back pain with pain and swelling to her left leg. She states that she was picking up some heavy stuff and cleaning yesterday when her low back started hurting. She states the left leg has had pain and swelling for a long time. There is no obvious swelling to the left leg there is tenderness to the thigh of both legs. She also is tenderness across both buttocks. Patient denies any loss of control of bowel or bladder, saddle anesthesia, loss of control of lower extremities or loss of sensation to lower extremities. Patient states she has had the back pain before but never this bad. Patient is alert and oriented respirations regular and unlabored speaking in full sentences walking with a even steady gait. TRAVEL OUTSIDE OF THE [place] IN LAST 30 DAYS: No - HPI Patient complains to provider of: Pain, Lower back Onset: Yesterday Onset: Chronic - Much worse today Timing: Still present Quality of pain: Achy, Burning, Sharp Severity: Severe Pain Level: 5 Context: Bending, Lifting, Turning Recent injury: No Associated symptoms: Radiation to leg, Lower back pain. denies: Constipation, Incontinence, Like prior neck/back pain, Motor loss, Numbness/tingling, Radiation to arm, Radiation to chest, Sensory loss, Sweaty, Unable to urinate Exacerbated by: Movement of trunk, Sitting position Relieved by: Nothing Similar symptoms previously: Yes Recently seen / treated by doctor: No - Related Data Allergies/Adverse Reactions: aspirin [Aspirin] Allergy (Verified 09/18/18 12:31) Past Medical History - General Information source: Patient - Social History Smoking Status: Former Smoker Cigarette use (# per day): No Chew tobacco use (# tins/day): No Smoking Education Provided: No Frequency of alcohol use: Occasional Drug Abuse: None Occupation: [employer] Lives with: Spouse/Significant other Family History: Reviewed & Not Pertinent Patient has suicidal ideation: No Patient has homicidal ideation: No - Past Medical History Cardiac Medical History: Reports: None Pulmonary Medical History: Reports: None EENT Medical History: Reports: None Neurological Medical History: Reports: Hx Migraine Endocrine Medical History: Reports: None Renal/ Medical History: Reports: None Malignancy Medical History: Reports: None GI Medical History: Reports: Hx Gastritis Musculoskeletal Medical History: Reports Hx Musculoskeletal Deformity, Reports Hx Musculoskeletal Trauma Skin Medical History: Reports None Psychiatric Medical History: Reports: Hx Bipolar Disorder Traumatic Medical History: Reports: Hx Fractures - hand and ankle, tailbone Infectious Medical History: Reports: None Past Surgical History: Reports: Hx Hysterectomy, Hx Oral Surgery - wisdom teeth, Hx Orthopedic Surgery - ORIF ankle, Hx Tonsillectomy, Hx Tubal Ligation - Immunizations Hx Diphtheria, Pertussis, Tetanus Vaccination: Yes Review of Systems - Review of Systems Constitutional: No symptoms reported EENT: No symptoms reported Cardiovascular: No symptoms reported Respiratory: No symptoms reported Gastrointestinal: No symptoms reported Genitourinary: No symptoms reported Female Genitourinary: No symptoms reported Musculoskeletal: Back pain, Muscle pain, Muscle stiffness Skin: No symptoms reported Hematologic/Lymphatic: No symptoms reported Neurological/Psychological: No symptoms reported -: Yes All other systems reviewed and negative Physical Exam - Vital signs Vitals: Temp Pulse Resp BP Pulse Ox 98.7 F 80 16 123/81 97 09/18/18 12:00 09/18/18 12:00 09/18/18 12:00 09/18/18 12:00 09/18/18 12:00 Interpretation: Normal - General General appearance: Appears well, Alert - HEENT Head: Normocephalic, Atraumatic Eyes: Normal Pupils: PERRL - Respiratory Respiratory status: No respiratory distress Chest status: Nontender Breath sounds: Normal Chest palpation: Normal - Cardiovascular Rhythm: Regular Heart sounds: Normal auscultation Murmur: No - Abdominal Inspection: Normal Distension: No distension Bowel sounds: Normal Tenderness: Nontender Organomegaly: No organomegaly - Back Back: Normal, Tender, Vertebra tenderness - Lumbar spine across both buttocks down both legs, no signs or symptoms of cauda equina, no loss of control of bowel bladder, no saddle anesthesia, no loss of function to the lower extremities.. No: Deformity/step-off, CVA tenderness, Scars, Scoliosis, Wounds - Extremities General upper extremity: Normal inspection, Nontender, Normal color, Normal ROM, Normal temperature General lower extremity: Normal inspection, Nontender, Normal color, Normal ROM, Normal temperature, Normal weight bearing. No: Kyung's sign - Neurological Neuro grossly intact: Yes Cognition: Normal Orientation: AAOx4 [place] Coma Scale Eye Opening: Spontaneous [place] Coma Scale Verbal: Oriented [place] Coma Scale Motor: Obeys Commands [place] Coma Scale Total: 15 Speech: Normal Motor strength normal: LUE, RUE, LLE, RLE Sensory: Normal - Psychological Associated symptoms: Normal affect, Normal mood - Skin Skin Temperature: Warm Skin Moisture: Dry Skin Color: Normal Course - Re-evaluation Re-evalutation: 09/18/18 15:21 X-rays with patient and written report of x-rays given the patient to follow-up with her primary doctor. List of local primary doctor is given to patient. She states she had a great deal of relief with the medication she received in the emergency room steroids anti-inflammatories and Lidoderm patch. Patient will be discharged home with prescription for muscle relaxants. After performing a Medical Screening Examination, I estimate there is LOW risk for EXPANDING OR RUPTURED ABDOMINAL AORTIC ANEURYSM, CAUDA EQUINA SYNDROME, EPIDURAL MASS LESION, or HERNIATED DISK CAUSING SEVERE SPINAL STENOSIS, thus I consider the discharge disposition reasonable. I have reevaluated this patient multiple times and no significant life threatening changes are noted. The patient and I have discussed the diagnosis and risks, and we agree with discharging home and close follow-up. We also discussed returning to the Emergency Department immediately if new or worsening symptoms occur with the understanding that symptoms and presentations can change. We have discussed the symptoms which are most concerning (e.g., saddle anesthesia, urinary or bowel incontinence or retention, changing or worsening pain) that necessitate immediate return. - Vital Signs Vital signs: Temp Pulse Resp BP Pulse Ox 98.0 F 69 16 114/74 97 09/18/18 15:17 09/18/18 15:17 09/18/18 15:17 09/18/18 15:17 09/18/18 15:17 - Diagnostic Test Radiology reviewed: Image reviewed, Reports reviewed Discharge - Discharge Clinical Impression: Low back pain with sciatica Qualifiers: Chronicity: unspecified Back pain laterality: left Sciatica laterality: sciatica of left side Qualified Code(s): M54.42 - Lumbago with sciatica, left side Condition: Stable Disposition: HOME, SELF-CARE Instructions: Family Physicians / Practices Additional Instructions: LOW BACK PAIN: Three out of every four people will have an episode of disabling back pain during their lifetime. Most commonly the pain is due to straining of the muscles and ligaments in the low back. Usual treatment includes: (1) Rest on a firm surface. Avoid lying on your stomach. (2) Ice pack the painful area. After a few days, gentle heat may be used intermittently to relax the area, or ice packs can be continued. (3) Medication may be needed -- muscle relaxers and antiinflammatory medicines are commonly used. (4) As the back improves, exercises are prescribed to strengthen the back and abdominal muscles. Your doctor will advise you on the proper care for your back at each stage in your recovery. You may be better in a few days -- or healing may take several weeks. If new symptoms of a "herniated disc" (radiation of pain, numbness, or tingling down the back of the leg or weakness in the leg) occur, you should be re-examined. Further testing may be necessary. MUSCLE RELAXERS: Muscle relaxing medications are usually prescribed for acute muscle spasm or injury to the neck and back. They are often combined with antiinflammatory pain medication for increased relief. You may stop the muscle relaxer when the pain and stiffness have improved. Start the medication again if spasms recur. Muscle relaxers may cause drowsiness, especially with the first dose. Do not operate machinery or drive while under the effects of the medication. Most muscle relaxers last up to 24 hours. Do not combine the medication with alcohol. ICE PACKS: Apply ice packs frequently against the painful area. Many different schedules are recommended, such as "20 minutes on, 20 minutes off" or "one hour ice, two hours rest." If you need to work, you may need to go longer between ice treatments. You should plan to have the area ice packed AT LEAST one fourth of the time. The ice should be applied over the wrap, tape, or splint, or over a layer of cloth -- not directly against the skin. Some ice bags have a built-in cloth and can be put directly on the skin. WARM PACKS: After approximately two days, apply gentle heat (such as a heating pad or hot water bottle) for about 20 to 30 minutes about every two hours -- at least four times daily. Warmth and elevation will help you make a more rapid recovery, and will ease the pain considerably. Do not use HOT heat, and never apply heat for longer than 30 minutes. The continuous heat can invisibly damage skin and muscles -- even when no burn is seen on the surface. Damaged muscles can make you MORE sore. STEROID MEDICATION: You have been given a medicine of the cortisone/steroid class. This medication is used to control inflammation or allergy. It is usually only given for a short period of time, until the acute process subsides. There are usually no side effects from short-term use of cortisone-like medications. Some persons feel an increased sense of well-being and are not sleepy at bedtime. Long-term use of cortisone medications is best avoided, unless required for a severe condition. If your condition does not remit, or relapses after the course of corticosteroid medication, you should consult your physician. Toradol Injection You have been given an injection of ketorolac tromethamine (Toradol). This is an excellent, safe drug for pain control. It also has potent antiinflammatory action. You should have significant pain relief within about one hour. Toradol is not addicting and is non-sedating. It does not interfere with driving or work. Call or return if you develop itching, hives, shortness of breath, or rash. Stretching Exercises for the Back The physician has recommended that you begin stretching exercises for your back. These are often used even while the back is painful. However, you should notify the physician if the activities seem to increase your pain. PELVIC TILT: Lie flat on your back with knees bent. Tighten your stomach and buttock muscles so it flattens your lower back against the floor. Hold 10 seconds. Repeat 10 times, twice daily. KNEE RAISE: Lying on the back with knees bent, raise one knee to your chest, then the other. Hold both knees against the chest 10 seconds, then lower one knee at a time. Repeat 10 times, twice daily. PARTIAL TRUNK RAISE: Lie face down, arms at your sides. Keeping your waist on the floor, use your arms raise your chest up. Support yourself on your elbows for 30 seconds. Repeat twice daily, increasing the time to two minutes as you recover. FOLLOW-UP CARE: If you have been referred to a physician for follow-up care, call the physicians office for an appointment as you were instructed or within the next two days. If you experience worsening or a significant change in your symptoms, notify the physician immediately or return to the Emergency Department at any time for re-evaluation. Prescriptions: Cyclobenzaprine HCl [Flexeril 10 mg Tablet] 10 mg PO TIDP PRN #15 tab PRN Reason: Forms: Return to Work
--- NOTE | 2018-09-18 14:25 | RADIOLOGY REPORT (SQ) ---
EXAM DESCRIPTION: L SPINE WHOLE COMPLETED DATE/TIME: 09/18/2018 2:16 pm REASON FOR STUDY: low back pain radiates to legs COMPARISON: None. NUMBER OF VIEWS: Five views including obliques. TECHNIQUE: AP, lateral, oblique, and sacral radiographic images acquired of the lumbar spine. LIMITATIONS: None. FINDINGS: MINERALIZATION: Normal. SEGMENTATION: Normal. No transitional anatomy. ALIGNMENT: Grade 1 anterolisthesis of L5 on S1. VERTEBRAE: Maintained height. No fracture or worrisome bone lesion. DISCS: Preserved height. No significant osteophytes or end plate irregularity. POSTERIOR ELEMENTS: Pedicles and facets are intact. Pars defects at L5. HARDWARE: None in the spine. PARASPINAL SOFT TISSUES: Normal. PELVIS: Intact as visualized. No fractures or worrisome bone lesions. SI joints intact. OTHER: No other significant finding. IMPRESSION: PARS DEFECTS AT L5 WITH GRADE 1 ANTEROLISTHESIS OF L5 ON S1. NO ACUTE FINDINGS. TECHNICAL DOCUMENTATION: JOB ID: [id number] [employer]- All Rights Reserved Reading location - IP/workstation name: [email or web address]
[2018-09-18 15:19] VITALS: BP 114/74
== END 2018-09-18 15:24 | disposition home or self-care (01) ==
LOC: ER 11:53
DX: M54.42 Lumbago with sciatica, left side (principal); R22.43 Localized swelling, mass and lump, lower limb, bilateral; Z88.6 Allergy status to analgesic agent; Z90.710 Acquired absence of both cervix and uterus
CPT/HCPCS: 99283; 96372; 72110; J1885

== ENCOUNTER 2018-12-21 05:36 | Emergency (ER) | payer BC ==
[2018-12-21] MEDS ORDERED: IBUPROFEN 600 MG TABLET PO ONE (06:03)
--- NOTE | 2018-12-21 06:06 | ER Document Report ---
ED Extremity Problem, Lower - General Chief Complaint: Ankle Pain Stated Complaint: RIGHT ANKLE PAIN Time Seen by Provider: 12/21/18 05:57 Mode of Arrival: Ambulatory Information source: Patient TRAVEL OUTSIDE OF THE [place] IN LAST 30 DAYS: No - HPI Patient complains to provider of: Pain Location: Ankle, Foot Notes: Patient is here with complaints of pain to the right ankle and left foot. She states approximate 3 weeks ago she was walking down a wheelchair ramp when she inverted her right ankle. She has had lateral ankle pain since this occurred. Pain is constant, worse with ambulation, better with rest. She denies any foot pain in this foot. No upper leg pain. She denies numbness, tingling, weakness. No redness. States for the last few days she has been experiencing some left lateral foot pain. She denies any specific injury to the foot. No redness or swelling. Pain is constant, worse with ambulation, better with rest. Denies any ankle pain in the left extremity. She denies any leg swelling. No chest pain or shortness of breath. No abdominal pain. No nausea, vomiting,. No rash. She denies any other complaints. - Related Data Allergies/Adverse Reactions: aspirin [Aspirin] Allergy (Verified 12/21/18 05:38) Past Medical History - Social History Smoking Status: Unknown if Ever Smoked Family History: Reviewed & Not Pertinent Neurological Medical History: Reports: Hx Migraine Renal/ Medical History: Denies: Hx Peritoneal Dialysis GI Medical History: Reports: Hx Gastritis Musculoskeletal Medical History: Reports Hx Musculoskeletal Deformity, Reports Hx Musculoskeletal Trauma Psychiatric Medical History: Reports: Hx Bipolar Disorder Traumatic Medical History: Reports: Hx Fractures - hand and ankle, tailbone Past Surgical History: Reports: Hx Hysterectomy, Hx Oral Surgery - wisdom teeth, Hx Orthopedic Surgery - ORIF ankle, Hx Tonsillectomy, Hx Tubal Ligation - Immunizations Hx Diphtheria, Pertussis, Tetanus Vaccination: Yes Review of Systems - Review of Systems -: Yes All other systems reviewed and negative Physical Exam - Vital signs Vitals: Temp Pulse Resp BP Pulse Ox 98.0 F 72 20 126/80 H 98 12/21/18 05:39 12/21/18 05:39 12/21/18 05:39 12/21/18 05:39 12/21/18 05:39 - Notes Notes: GENERAL: alert, cooperative, nontoxic, no distress. HEAD: normocephalic, atraumatic EYES: conjunctiva pink without discharge, no external redness or swelling. EARS: no external swelling, no external redness NOSE: atraumatic, no external swelling MOUTH/THROAT: mucous membranes moist and pink NECK: soft, supple, full range of motion, no meningismus. CHEST: no distress, lungs clear and equal throughout. No wheezing, rales, rhonchi. CARDIAC: regular rate and rhythm, no murmur, normal capillary refill, normal pulses. BACK: full range of motion, no CVA tenderness. EXTREMITIES: full range of motion of all extremities. No redness, no swelling. Tenderness to palpation to the right lateral malleolus. No obvious ligament instability. No tenderness to palpation of the foot. Normal pulse and sensation. Achilles is intact with a normal De La Cruz's test. No proximal tib- fib tenderness. Tenderness to palpation along the lateral aspect of the left foot. No swelling or redness. Normal pulse and sensation. No ankle tenderness. NEURO: alert and oriented 3, no focal deficits, full range of motion of all extremities. PYSCH: appropriate mood, affect. Patient is cooperative. SKIN: pink, warm, dry, no rash. Course - Re-evaluation Re-evalutation: 12/21/18 07:34 Patient is resting comfortably at this time. Patient here with complaints of right ankle pain and left foot pain. She states that she twisted her right ankle several weeks ago and started having some left foot pain a few days ago. No fevers, no redness, no signs of infection. X-rays of the ankle and foot are negative for acute fracture. Neurovascular she is intact. Compartments are soft. Patient will be placed in a ankle stirrup splint for comfort. She will be discharged home with a prescription for Voltaren. She is instructed to rest, ice, elevate. She is instructed to follow-up with orthopedics due to the fact that she still having pain in the ankle 3 weeks after injury. Follow-up sooner if she develops any worsening pain, fever, redness, numbness, tingling, weakness, any further concerns. The patient's emergency department workup and current diagnosis were explained to the patient and or family. Follow-up instructions were provided. Medications if prescribed were discussed. Instructions for when to return to the emergency department including specific worrisome symptoms were discussed with the patient and/or family. - Vital Signs Vital signs: Temp Pulse Resp BP Pulse Ox 98.0 F 72 20 126/80 H 98 12/21/18 05:39 12/21/18 05:39 12/21/18 05:39 12/21/18 05:39 12/21/18 05:39 - Diagnostic Test Radiology reviewed: Image reviewed, Reports reviewed - Negative right ankle, left foot. Procedures - Immobilization Right ankle Pre-Proc Neuro Vasc Exam: Normal Immobilizer type: Ankle stirrup Performed by: PCT Post-Proc Neuro Vasc Exam: Normal, Unchanged from pre-exam Alignment checked and good: Yes Discharge - Discharge Clinical Impression: Left foot pain Right ankle sprain Qualifiers: Encounter type: initial encounter Involved ligament of ankle: other ligament Qualified Code(s): S93.491A - Sprain of other ligament of right ankle, initial encounter Condition: Stable Disposition: HOME, SELF-CARE Instructions: Splint Precautions ([facility]), Sprained Ankle ([facility]), Ice Packs ([facility]) Additional Instructions: Take medication as prescribed. Wear splint as needed for comfort. Rest, ice, elevate. Follow-up with orthopedics at the next available appointment. Follow- up sooner for worsening pain, fever, redness, numbness, tingling, weakness, any further concerns. Prescriptions: Diclofenac Sodium [Voltaren 50 Mg Tablet.] 50 mg PO BID #20 tablet.dr Forms: Return to Work Referrals: DEENA DOYLE MD [ACTIVE STAFF] - Follow up as needed [facility] [Provider Group] - Follow up as needed
--- NOTE | 2018-12-21 07:16 | RADIOLOGY REPORT (SQ) ---
EXAM DESCRIPTION: XR FOOT 3 OR MORE VIEWS COMPLETED DATE/TME: 12/21/2018 06:03 CLINICAL HISTORY: 43 years, Female, pain COMPARISON: None. FINDINGS: 3 views of the right foot. Postoperative change of the tibia and fibula. Plantar calcaneal spur. No acute fracture or dislocation. IMPRESSION: 1. No acute fracture or dislocation. copyright 2010 [email or web address]- All Rights Reserved
--- NOTE | 2018-12-21 07:17 | RADIOLOGY REPORT (SQ) ---
EXAM DESCRIPTION: XR ANKLE 3 OR MORE VIEWS COMPLETED DATE/TME: 12/21/2018 06:03 CLINICAL HISTORY: 43 years, Female, pain COMPARISON: None. FINDINGS: 3 views of the ankle right. No acute fracture or dislocation. Normal osseous mineralization. Tibial plafond and talar dome have appropriate alignment. Tiny plantar calcaneal spur. IMPRESSION: 1. No acute fracture or dislocation. copyright 2010 [employer]- All Rights Reserved
[2018-12-21 07:52] VITALS: BP 133/82
== END 2018-12-21 07:52 | disposition home or self-care (01) ==
LOC: ER 05:36
PROC: 2W3QX1Z Immobilization of Right Lower Leg using Splint (ICD-10-PCS; principal; 2018-12-21)
DX: S93.491A Sprain of other ligament of right ankle, initial encounter (principal); M79.672 Pain in left foot; M25.571 Pain in right ankle and joints of right foot; X58.XXXA Exposure to other specified factors, initial encounter
CPT/HCPCS: 99283; 73610; 73630; 29515; L4350; L1902

== ENCOUNTER 2019-04-15 22:59 | Emergency (ER) | payer BC ==
--- NOTE | 2019-04-16 00:05 | ER Document Report ---
ED General - General Chief Complaint: Swallowed Foreign Body Stated Complaint: ABDOMINAL PAIN Time Seen by Provider: 04/15/19 23:17 Primary Care Provider: YSABEL MORALES MD [ACTIVE STAFF] - Follow up in 3-5 days CASEY FERRELL MD [ACTIVE STAFF] - Follow up in 3-5 days Notes: Patient is a pleasant 44-year-old female presents with complaint of a food impaction esophagus. She said this several times before. She has had previous endoscopies with dilation of stricture. Is been well since her last endoscopy. She says food occasionally gets stuck and usually she can get her to go down but the food remained stuck her esophagus tonight and therefore she called 9 months. Paramedics gave her glucagon IV and the patient was able to vomit up the piece of meat. She currently feels well and has no further concerns. She denies any pain in her chest. She denies any spitting up or vomiting of blood. TRAVEL OUTSIDE OF THE [place] IN LAST 30 DAYS: No - Related Data Allergies/Adverse Reactions: aspirin [Aspirin] Allergy (Verified 12/21/18 05:38) Past Medical History - Social History Smoking Status: Former Smoker Frequency of alcohol use: Occasional Drug Abuse: None Family History: Reviewed & Not Pertinent Patient has suicidal ideation: No Patient has homicidal ideation: No Neurological Medical History: Reports: Hx Migraine Renal/ Medical History: Denies: Hx Peritoneal Dialysis GI Medical History: Reports: Hx Gastritis Musculoskeletal Medical History: Reports Hx Musculoskeletal Deformity, Reports Hx Musculoskeletal Trauma Psychiatric Medical History: Reports: Hx Bipolar Disorder Traumatic Medical History: Reports: Hx Fractures - hand and ankle, tailbone Past Surgical History: Reports: Hx Hysterectomy, Hx Oral Surgery - wisdom teeth, Hx Orthopedic Surgery - ORIF ankle, Hx Tonsillectomy, Hx Tubal Ligation - Immunizations Hx Diphtheria, Pertussis, Tetanus Vaccination: Yes Review of Systems - Review of Systems Notes: My Normal Review Basic REVIEW OF SYSTEMS: CONSTITUTIONAL : Denies fever, chills, or sweats. Denies recent illness. CARDIOVASCULAR: Denies chest pain. RESPIRATORY: Denies cough, cold, or chest congestion. Denies shortness of breath, difficulty breathing, or wheezing. GASTROINTESTINAL: Denies abdominal pain. Food bolus impaction NEUROLOGICAL: Denies altered mental status or loss of consciousness. ALL OTHER SYSTEMS REVIEWED AND NEGATIVE. Physical Exam - Vital signs Vitals: Resp Pulse Ox 18 99 04/15/19 23:03 04/15/19 23:03 - Notes Notes: General Appearance: Well nourished, alert, cooperative, no acute distress, no obvious discomfort. Well-appearing. Vitals: reviewed, See vital signs table. Head: no swelling or tenderness to the head Eyes: PERRL, EOMI, Conjuctiva clear Mouth: No decreasd moisture Lungs: No wheezing, No rales, No rhonci, No accessory muscle use, good air exchange bilaterally. Heart: Normal rate, Regular rythm, No murmur, no rub Abdomen: Normal BS, soft, No rigidity, No abdominal tenderness patient, No guarding, no rebound, no abdominal masses, no organomegaly Skin: warm, dry, appropriate color, no rash Neuro: speech clear, oriented x 3, normal affect, responds appropriately to questions. Course - Re-evaluation Re-evalutation: 04/16/19 00:05 Patient was able to vomit up the piece of meat in route after paramedics gave her glucagon. She is felt well since. I gave her ice water. I watched her for another 30 minutes after strength icewater. She has had no spitting up of blood. She is been swallowing without any difficulties since she is arrived. She denies any pain or chest or throat. She looks well. Feel she safe to be discharged home. She has not had endoscopy in the last couple years therefore I will refer her to GI for evaluation. She had previous esophageal strictures requiring dilation. I informed her the importance of following up with the GI physician. Patient to return to ER if she has pain in her chest, occult he swallowing, coughing up of blood, or if she feels unwell. I encouraged patient to follow a soft diet over the next several days. Patient agrees with plan will be discharged home. Dictation of this chart was performed using voice recognition software; therefore, there may be some unintended grammatical errors. - Vital Signs Vital signs: Temp Pulse Resp BP Pulse Ox 98.1 F 14 112/66 98 04/16/19 00:10 04/16/19 00:01 04/16/19 00:01 04/16/19 00:01 Discharge - Discharge Clinical Impression: Food impaction of esophagus Qualifiers: Encounter type: initial encounter Qualified Code(s): T18.128A - Food in esophagus causing other injury, initial encounter Disposition: HOME, SELF-CARE Additional Instructions: Follow a soft diet for the next several days. Do not eat any meats. Do not eat anything hard. Make sure you chew all your food into very small pieces before swallowing. Please follow-up with a GI physician for reevaluation and endoscopy. I provided the phone number to 2 different GI physicians. Please call their offices in the morning to make a close follow-up appointment. Please return to the ER immediately if you have recurrence of food getting stuck in your esophagus, vomiting up blood, chest pain, or feel unwell. He does take Pepcid 20 mg every day. The generic form of Pepcid is famotidine. You can buy this over the counter at any drugstore or [employer]. Referrals: YSABEL MORALES MD [ACTIVE STAFF] - Follow up in 3-5 days CASEY FERRELL MD [ACTIVE STAFF] - Follow up in 3-5 days
[2019-04-16 00:08] VITALS: BP 112/66
== END 2019-04-16 00:14 | disposition home or self-care (01) ==
LOC: ER 22:59
DX: T18.128A Food in esophagus causing other injury, initial encounter (principal); X58.XXXA Exposure to other specified factors, initial encounter; Z87.19 Personal history of other diseases of the digestive system; Z98.890 Other specified postprocedural states; Z87.891 Personal history of nicotine dependence; Z88.8 Allergy status to other drugs, medicaments and biological substances
CPT/HCPCS: 99284